=== PATIENT | female | born 1980 | race Caucasian/White ===

== ENCOUNTER 2024-06-01 10:18 | Outpatient (CLI) | payer OTHER, SELFPAY ==
--- NOTE | 2024-06-01 10:37 | XR_ITS ---
WS: [email or web address] XR cervical spine 4-5V 71200 REASON FOR EXAM: NUMBNESS AND TINGLING SENSATION FINDINGS: Slight reversal of the normal lordosis of the cervical spine. Normal odontoid. No vertebral body compression deformity or focal lesion. Intervertebral disc spaces are intact and relatively well preserved. Minimal narrowing of the disc space at C4-C5. No significant listhesis. No facet joint abnormality. XR/XR cervical spine 4-5V 24119 IMPRESSION: Minimal degenerative spondylosis as above.
== END 2024-06-01 10:19 | disposition home or self-care (01) ==
PROVIDERS: PCP Family Medicine; Visit Provider Family Medicine
DX: R20.2 Paresthesia of skin (principal); M54.2 Cervicalgia
CPT/HCPCS: 72050

== ENCOUNTER 2024-06-06 10:05 | Outpatient (CLI) | payer OTHER, SELFPAY ==
--- NOTE | 2024-06-06 10:10 | MM_ITS ---
WS: [email or web address] VIEWS: MLO and CC views both breasts. 3D digital tomosynthesis is also included in this exam. Baseline study Findings: There are scattered areas of fibroglandular density. A 4.4 x 5.1 cm fatty mass containing an asymmetric 2 cm clustering of nodules is noted in the medial LEFT breast at about the 3 o'clock position at mid depth. There are several additional small nodular densities seen in the central posterior LEFT breast almost directly on the nipple line. No suspicious calcification noted. This might represent an atypical hamartoma however less likely possibilities would include phyllodes tumor or liposarcoma. Ultrasound is indicated for follow-up. Ultimately, biopsy may be necessary for definitive diagnosis. In the RIGHT breast there is a 2.5 cm asymmetric density in the central breast almost directly behind the nipple at mid depth. No suspicious calcification identified. Compression spot images as well as regional ultrasound would be recommended for further evaluation of this area. MM/MM scr BI tomosynthesis [id number] Impression: BI-RADS: 0 - Incomplete: Need additional imaging evaluation FOLLOW-UP: Need Additional Imaging This mammogram was also analyzed by the Computer Aided Detection System [employer].
== END 2024-06-06 10:06 | disposition home or self-care (01) ==
PROVIDERS: PCP Family Medicine; Visit Provider Family Medicine
DX: Z12.31 Encounter for screening mammogram for malignant neoplasm of breast (principal); R92.323 Mammographic fibroglandular density, bilateral breasts; N63.25 Unspecified lump in the left breast, overlapping quadrants; N63.20 Unspecified lump in the left breast, unspecified quadrant; R92.8 Other abnormal and inconclusive findings on diagnostic imaging of breast; N63.10 Unspecified lump in the right breast, unspecified quadrant
CPT/HCPCS: 77063; 77067

== ENCOUNTER 2024-06-16 10:03 | Outpatient (CLI) | payer OTHER, SELFPAY ==
--- NOTE | 2024-06-16 10:06 | US_ITS ---
WS: [id number] RIGHT UPPER QUADRANT ULTRASOUND HISTORY: RUQ PAIN COMPARISON: None available. Liver: 14.7 cm in length. Normal size liver and echogenicity. No bile duct dilatation or mass. Portal Vein: Normal hepatopetal flow with monophasic waveform. Gallbladder: Normally distended gallbladder with no stones or wall thickening. CBD: 0.4 cm Pancreas: Normal size and echogenicity. Right kidney: 10.4 cm in length. Normal size and echogenicity. No hydronephrosis or mass. Aorta and IVC: Unremarkable abdominal aorta and IVC. No ascites. US/US abdomen limited [id number] IMPRESSION: Normal right upper quadrant ultrasound.
== END 2024-06-16 10:04 | disposition home or self-care (01) ==
PROVIDERS: PCP Family Medicine; Visit Provider Family Medicine
DX: R10.11 Right upper quadrant pain (principal)
CPT/HCPCS: 76705

== ENCOUNTER 2024-07-12 10:40 | Outpatient (CLI) | payer OTHER, SELFPAY ==
--- NOTE | 2024-07-12 10:45 | US_ITS ---
WS: [email or web address] Exam: US breast BI limited* [id number] Date/Time of Exam: 07/12/2024 11:34 AM Reason For Exam: BILATERAL ABNORMAL MAMMOGRAM Regional ultrasound of the RIGHT breast from the 11 to the 1 o'clock position is performed. There was no sign of solid mass or nodule. No cysts were identified. Regional ultrasound of the LEFT breast from the 9:00 to the 12 o'clock position demonstrated no suspicious solid mass or nodule. No cysts were identified in this region. Recommendations: Continue yearly screening mammography. US/US breast BI limited* [id number] IMPRESSION: 1. No suspicious ultrasound finding in either breast. See above discussion. BI-RADS Category 2.
--- NOTE | 2024-07-12 10:45 | MM_ITS ---
WS: [email or web address] VIEWS: MLO, CC, and ML views both breasts. 3D digital tomosynthesis is also included in this exam. Comparison made with prior exam of 06/06/2024. Findings: The breasts are heterogeneously dense, which may obscure small masses. There is no sign of suspicious mass, tumor calcification or architectural distortion in either breast. There are findings in both breasts that most likely represent benign hamartomas. Regional ultrasound both breasts recommended. MM/MM diag BI tomosynthesis [id number] Impression: BI-RADS: 0 - Incomplete: Need additional imaging evaluation FOLLOW-UP: Need Additional Imaging This mammogram was also analyzed by the Computer Aided Detection System R2 [employer].
== END 2024-07-12 10:41 | disposition home or self-care (01) ==
LOC: RAD 10:43
PROVIDERS: PCP Family Medicine; Visit Provider Family Medicine
DX: R92.8 Other abnormal and inconclusive findings on diagnostic imaging of breast (principal); R92.333 Mammographic heterogeneous density, bilateral breasts
CPT/HCPCS: 76642; 77062; G0279